=== PATIENT | male | born 1965 | race Caucasian/White ===

== ENCOUNTER 2016-11-12 18:14 | Emergency (ER) | payer MEDICAID ==
--- NOTE | 2016-11-12 19:16 | CPEKG ---
Heart Rate: 69 RR Interval: 870 P-R Interval: 144 QRSD Interval: 86 QT Interval: 364 QTC Interval: 390 P [place]: 53 QRS [place]: -27 T Wave [place]: 98 EKG Severity - ABNORMAL ECG - EKG Impression: SINUS RHYTHM EKG Impression: BORDERLINE LEFT AXIS DEVIATION EKG Impression: NONSPECIFIC T ABNORMALITIES, LATERAL LEADS Electronically Signed By: Johann Cabrera 12-Nov-2016 21:49:12
[2016-11-12] MEDS ORDERED: IPRATROPIUM/ALBUTEROL 3 ML DEYVIAL IH ONE (19:23)
--- NOTE | 2016-11-12 19:25 | EDPHY ---
H & P Stated Complaint: Feels SOB since yesterday Time Seen by Provider: 11/12/16 18:54 HPI/ROS: Chief complaint shortness of breath HPI: 51-year-old male presenting with worsening shortness of breath for the last 2 months, particularly worse the last 2 days. Patient states it is worse when lying down. Better when he sits up. Does have a history of a possible pleural effusion 3 years ago when he had a arm infection. Denies any pain. Shortness of breath is nonexertional. Denies any fevers or chills. No cough. No nausea or vomiting. Does smoke cigarettes, does drink alcohol, and does use marijuana. ROS: 10 point Review of Systems is negative except as noted in the HPI. Past medical history: Bipolar disorder, PTSD, group a strep cellulitis Medications: Hydroxyzine, amitriptyline, Abilify, fluoxetine Allergies: No known drug allergies Physical exam: Gen: Awake, Alert, No Distress HEENT: Nose: no rhinorrhea Eyes: PERRLA, EOMI Mouth: Moist mucosa Neck: Supple, no JVD Chest: nontender, mild bibasilar crackles with diminished breath sounds globally and mild diffuse expiratory wheeze Heart: S1, S2 normal, no murmur Abd: Soft, non-tender, no guarding Back: no CVA tenderness, no midline tenderness Ext: no edema, non-tender Skin: no rash Neuro: CN II-XII intact, Sensation grossly intact, Strength 5/5 in bilateral upper and lower extremities - Personal History Current Tetanus Diphtheria and Acellular Pertussis (TDAP): Yes Tetanus Vaccine Date: 2008 - Medical/Surgical History Hx Asthma: No Hx Chronic Respiratory Disease: No Hx Diabetes: No Hx Cardiac Disease: Yes Hx Renal Disease: No Hx Cirrhosis: No Hx Alcoholism: No Hx HIV/AIDS: No Hx Splenectomy or Spleen Trauma: No Other PMH: CHI/TBI, concussions x4 times, pericardial effusion, I&D RUE from strep type A, depression, bipolar, inguinal hernia repair; ACL repair Sep 2016, anxiety - Social History Smoking Status: Current every day smoker Constitutional: Initial Vital Signs Temperature (C) 36.5 C 11/12/16 18:19 Heart Rate 78 11/12/16 18:19 Respiratory Rate 18 11/12/16 18:19 Blood Pressure 122/78 H 11/12/16 18:19 O2 Sat (%) 95 11/12/16 18:19 O2 Delivery Mode Room Air Allergies/Adverse Reactions: No Known Allergies Allergy (Verified 11/12/16 18:15) Home Medications: Medication Instructions Recorded ARIPiprazole [Abilify 10 mg (*)] 10 mg PO DAILY 11/12/16 Amitriptyline HCl [Elavil 10 mg 10 mg PO TID 11/12/16 (*)] FLUoxetine [PROzac] 10 mg PO 11/12/16 hydrOXYzine HCL [hydrOXYzine HCL 25 mg PO 11/12/16 (RX)] Medical Decision Making - Diagnostics Imaging: Chest x-ray: Interpreted by radiologist, peribronchial thickening consistent with bronchitis or airways disease. ED Course/Re-evaluation: Patient feels significantly improved after a DuoNeb. Chest x-ray is consistent with reactive airway disease. Repeat evaluation shows improvement of his wheezing and lung exam. He has clear lung burnett bilaterally. Will discharge with an albuterol MDI and spacer. He has appointment with his doctor this week. She will probably be arranging for a formal pulmonary function testing. - Data Points Medications Given: Discontinued Medications Albuterol/Ipratropium (Duoneb) 3 ml IH EDNOW ONE Stop: 11/12/16 19:24 Last Admin: 11/12/16 19:42 Dose: 3 ml Departure - Departure Disposition: Home, Routine, Self-Care Clinical Impression: Acute bronchitis Condition: Good Instructions: Bronchospasm (ED), Wheezing (ED), Acute Bronchitis (ED) Additional Instructions: You may use the inhaler 2 puffs every 4 hours as needed for wheeze or shortness of breath. Follow up with her primary care doctor as scheduled this week for re- evaluation. She may choose to order pulmonary function test. Referrals: Rika Corado [Primary Care Provider] - As per Instructions
[2016-11-12] MEDS ORDERED: ALBUTEROL INH PREPACK MDI TAKEHOME ONE (20:51)
[2016-11-12 20:58] VITALS: BP 118/78; PULSE 70; RESP 14; TEMP 98.4; O2SAT 94
== END 2016-11-12 20:57 | disposition home or self-care (01) ==
DX: J20.9 Acute bronchitis, unspecified (principal); F17.200 Nicotine dependence, unspecified, uncomplicated

== ENCOUNTER → 2017-08-19 | Outpatient (CLI) | payer MEDICAID | LOC: FCPNEURO 23:20 | PROVIDERS: ATTEND Student in an Organized Health Care Education/Training Program | DX: G47.31 Primary central sleep apnea (principal); G47.33 Obstructive sleep apnea (adult) (pediatric) ==

== ENCOUNTER 2018-09-23 21:16 | Emergency (ER) | payer MEDICAID ==
--- NOTE | 2018-09-23 21:28 | EDPHY ---
H & P Time Seen by Provider: 09/23/18 21:17 - Personal History Tetanus Vaccine Date: 2008 - Medical/Surgical History Hx Asthma: No Hx Chronic Respiratory Disease: No Hx Diabetes: No Hx Cardiac Disease: Yes Hx Renal Disease: No Hx Cirrhosis: No Hx Alcoholism: No Hx HIV/AIDS: No Hx Splenectomy or Spleen Trauma: No Other PMH: CHI/TBI, concussions x4 times, pericardial effusion, I&D RUE from strep type A, depression, bipolar, inguinal hernia repair; ACL repair Sep 2016, anxiety - Social History Smoking Status: Current every day smoker Constitutional: Initial Vital Signs Temperature (C) 36.7 C 09/23/18 21:24 Heart Rate 75 09/23/18 21:24 Respiratory Rate 20 09/23/18 21:24 Blood Pressure 158/105 H 09/23/18 21:24 O2 Sat (%) 94 09/23/18 21:24 O2 Delivery Mode Room Air Allergies/Adverse Reactions: No Known Allergies Allergy (Verified 09/23/18 21:24) Home Medications: Medication Instructions Recorded ARIPiprazole [Abilify 10 mg (*)] 10 mg PO DAILY 11/12/16 Amitriptyline HCl [Elavil 10 mg 10 mg PO TID 11/12/16 (*)] FLUoxetine [PROzac] 10 mg PO 11/12/16 hydrOXYzine HCL [hydrOXYzine HCL 25 mg PO 11/12/16 (RX)] Medical Decision Making ED Course/Re-evaluation: CHIEF COMPLAINT: Heroin overdose HISTORY OF PRESENT ILLNESS: The patient is a 53 y/o male arriving via EMS from home after a heroin overdose. His roommate contacted EMS and reported the patient has been using methamphetamine throughout the day and then took a large dose of heroin. He apparently used heroin about 5 minutes prior to arrival per the roommate. EMS found him unconscious with respiratory depression, but not apneic, and pinpoint pupils and administered 2mg Narcan. He quickly regained consciousness and normal respiratory function and has been alert and oriented since then. He currently denies any complaints. He denies any other ingestions or drug use. No recent illness or trauma. REVIEW OF SYSTEMS: A comprehensive 10 system review of systems is otherwise negative aside from elements mentioned in the history of present illness and medical decision making. PHYSICAL EXAM: HR, BP, O2 Sat, RR. Temp noted General Appearance: Alert, well hydrated, appropriate, and non-toxic appearing. Head: Atraumatic without scalp tenderness or obvious injury Eyes: Pupils equal, round, reactive to light and accommodation, EOMI, no trauma , no injection. Nose: Atraumatic, no rhinorrhea, clear. Throat: Mucus membranes moist. Neck: Supple, non-tender, no lymphadenopathy. Respiratory: No retractions, no distress, no wheezes, and no accessory muscle use. Lungs are clear to auscultation bilaterally. Cardiovascular: Regular rate and rhythm, no murmurs, rubs, or gallops. Good capillary refill all extremities. Gastrointestinal: Abdomen is soft, non-tender, non-distended, no masses, no rebound, no guarding, no peritoneal signs. Musculoskeletal: Normal active ROM of all extremities, atraumatic. Neurological: Alert, appropriate, and interactive. The patient has non-focal cranial nerves, motor, sensory, and cerebellar exam. Skin: No rashes, good turgor, no nodules on palpation. PAST MEDICAL HISTORY: Substance abuse, sleep apnea - CPAP PAST SURGICAL HISTORY: Noncontributory SOCIAL HISTORY: Lives in [place]. Meth and heroin abuse. DIFFERENTIAL DIAGNOSIS: The differential diagnosis for the patient's symptoms included but was not limited to narcotic overdose, other intoxicants, infectious process, electrolyte abnormality, head injury, neurologic process, anemia, cardiac process, pneumonia, myocardial infarction, acute mountain sickness, high altitude pulmonary edema, congestive heart failure, and pulmonary embolus. MEDICAL DECISION MAKING: This is a 53 y/o male with a history of substance abuse who presents after a period of respiratory depression following a large dose of heroin this evening. He is currently asymptomatic. Exam is unremarkable. He is not hypoxemic and is breathing normally. Plan for observation. While here patient's SpO2 drops to 88-89% while sleeping. When waking him he tells me he feels fine and denies dyspnea. He reports he has sleep apnea and uses a CPAP while at home. While awake and talking to me his SpO2 is 93%. Doubt noncardiogenic pulmonary edema. Will continue to observe. Patient is doing well on reassessment. He is eager to leave and does not want any further work up here. He will be discharged with standard care and follow up instructions. Return precautions discussed. Departure - Departure Disposition: Home, Routine, Self-Care Clinical Impression: Heroin overdose Qualifiers: Encounter type: initial encounter Injury intent: accidental or unintentional Qualified Code(s): T40.1X1A - Poisoning by heroin, accidental (unintentional), initial encounter Condition: Good Instructions: Narcotic Use Disorder (ED) Additional Instructions: Avoid abuse of illicit drugs. Follow up with your primary care provider this week. Return for worsening of condition. Referrals: [facility],. [Clinic] - As per Instructions Report Scribed for: Matthew Colon Report Scribed by: Beckie Nieto Date of Report: 09/23/18 Time of Report: 21:34
[2018-09-23 22:14] VITALS: BP 126/95
== END 2018-09-23 22:35 | disposition home or self-care (01) ==
LOC: EDUNIT#
DX: T40.1X1A Poisoning by heroin, accidental (unintentional), initial encounter (principal)

== ENCOUNTER → 2018-10-12 | Outpatient (CLI) | payer MEDICAID | LOC: FCPNEURO 21:00 | PROVIDERS: ATTEND Student in an Organized Health Care Education/Training Program | DX: G47.33 Obstructive sleep apnea (adult) (pediatric) (principal) ==

== ENCOUNTER 2019-01-17 11:19 | Inpatient (IN) | payer MEDICAID ==
[2019-01-17] MEDS ORDERED: BACITRACIN ZINC 0.5 OZ OINTTUBE TP ONE (11:25)
[2019-01-17] MEDS ORDERED: LIDO/EPI 1% **Not for Epidural 20 ML MDV ONE (11:25)
[2019-01-17] MEDS ORDERED: OXYMETAZOLINE 30 ML NASAL SPRAY ONE (11:25)
[2019-01-17] MEDS ORDERED: LR 1,000 ML IV ONE (11:42)
[2019-01-17] MEDS ORDERED: PROPOFOL/EMULSION 500 MG/50 ML BOTTLE IV ONE (12:19)
[2019-01-17] MEDS ORDERED: fentaNYL 100 MCG/2 ML INJ ONE ×2 (12:20→15:00)
--- NOTE | 2019-01-17 12:21 | PDGENHP ---
History & Physical Chief Complaint: nasal obstruction History of Present Illness: Septal deviation, turbinate hypertrophy Pertinent Past, Social, Family History: Smoker Relevant Physical Exam: Nasal obstruction. A&O, NAD Cardiorespiratory Assessment: Good candidate for steptoplasty, turbinate reduction
[2019-01-17] MEDS ORDERED: MIDAZOLAM 2 MG/2 ML VIAL ONE (12:23)
[2019-01-17] MEDS ORDERED: OXYMETAZOLINE 30 ML NASAL SPRAY EACHNARE ONE (12:23)
[2019-01-17] MEDS ORDERED: LABETALOL HCL 5 MG/ML 20 ML MDV ONE ×2 (12:47→14:52)
[2019-01-17] MEDS ORDERED: MIDAZOLAM 2 MG/2 ML VIAL IVP ONE (13:01)
[2019-01-17] MEDS ORDERED: LR 500 ML IV PRN (13:02)
[2019-01-17] MEDS ORDERED: ALBUTEROL 3 ML DEYVIAL IH PRN ×2 (13:02→16:19)
[2019-01-17] MEDS ORDERED: DEXAMETHASONE 4 MG/ML VIAL IVP PRN (13:02)
[2019-01-17] MEDS ORDERED: oxyCODONE IR 5 MG TAB PO PRN (13:02)
[2019-01-17] MEDS ORDERED: ONDANSETRON 4 MG/2 ML VIAL IVP PRN ×2 (13:02→16:19)
[2019-01-17] MEDS ORDERED: ACETAMINOPHEN 500 MG TAB PO PRN (13:02)
[2019-01-17] MEDS ORDERED: NALOXONE HCL 0.4 MG/ML INJ IVP PRN (13:02)
--- NOTE | 2019-01-17 13:08 | PDANEPAE ---
ANE History of Present Illness 53 year old male for septoplasty to treat nasal obstruction. He has sleep apnea but is unable to use his CPAP secondary to nasal obstruction. He also has a history of CAD with stents placed in 2011. He smokes cigs and today on admission his O2 sat was 83 on RA. He says he has an inhaler but doesn't use it. He denies any recent infections, cough, or fever. He states that he feels like he is currently at his baseline. He does not use oxygen. He is followed by Dr. Rika Corado at the [facility]. ANE Past Medical History - Cardiovascular History Hx Hypertension: No Hx Arrhythmias: No Hx Chest Pain: No Hx Coronary Artery / Peripheral Vascular Disease: Yes Hx CHF / Valvular Disease: No Hx Palpitations: No Cardiovascular History Comment: R HEART CATH 2011. PERICARDIOCENTESIS 2011 - Pulmonary History Hx COPD: Yes Hx Asthma/Reactive Airway Disease: Yes Hx Recent Upper Respiratory Infection: No Hx Oxygen in Use at Home: No Hx Sleep Apnea: Yes Sleep Apnea Screening Result - Last Documented: Positive - Neurologic History Hx Cerebrovascular Accident: No Hx Seizures: No Hx Dementia: No Neurologic History Comment: MIGRAINES. CONCUSSIONS - Endocrine History Hx Diabetes: No - Renal History Hx Renal Disorders: No - Liver History Hx Hepatic Disorders: No - Neurological & Psychiatric Hx Hx Neurological and Psychiatric Disorders: Yes Neurological / Psychiatric History Comment: DEPRESSION - Cancer History Hx Cancer: No - Congenital Disorder History Hx Congenital Disorders: No - GI History Hx Gastrointestinal Disorders: No - Other Health History Other Health History: NEG - Chronic Pain History Chronic Pain: No - Surgical History Prior Surgeries: R ELBOW I & D. R HEART CATH 2011. PERICARDIOCENTESIS 2011 ANE Review of Systems Review of systems is: negative Review of Systems: - Exercise capacity METS (RN): 5 METS ANE Patient History - Allergies Allergies/Adverse Reactions: No Known Allergies Allergy (Verified 09/23/18 21:24) - Home Medications Home Medications: ARIPiprazole [Abilify 10 mg (*)] 10 mg PO DAILY 11/12/16 [Last Taken 01/17/19 05 :00] Amitriptyline HCl [Elavil 10 mg (*)] 10 mg PO TID 11/12/16 [Last Taken 01/16/19 20:00] FLUoxetine [PROzac] 10 mg PO 11/12/16 [Last Taken 01/16/19 20:00] - NPO status NPO Since - Liquids (Date): 01/17/19 NPO Since - Liquids (Time): 04:00 NPO Since - Solids (Date): 01/16/19 NPO Since - Solids (Time): 21:00 - Smoking Hx Smoking Status: Current every day smoker - Family Anes Hx Family Hx Anesthesia Complications: NEG ANE Labs/Vital Signs - Vital Signs Blood Pressure: 108/75 Heart Rate: 87 Respiratory Rate: 15 O2 Sat (%): 83 Height: 172.72 cm Weight: 72.575 kg ANE Physical Exam - Airway Neck exam: FROM Mallampati Score: Class 2 Mouth exam: poor dentition - Pulmonary Pulmonary: inspiratory crackles - Cardiovascular Cardiovascular: regular rate and rhythym - ASA Status ASA Status: III
[2019-01-17] MEDS ORDERED: ALBUTEROL 3 ML DEYVIAL ONE (14:37)
--- NOTE | 2019-01-17 14:42 | POSTOPPROG ---
Post Op Note Date of Operation: 01/17/19 Surgeon: Jagdish Valladares Anesthesiologist: Alyssa Anesthesia: GET(General Endotracheal) Pre-op Diagnosis: Nasal valve stenosis, nasal septal deviation Post-op Diagnosis: Nasal valve stenosis, nasal septal deviation Indication: Nasal valve stenosis, nasal septal deviation Procedure: Endoscopic septoplasty, nasal valve stenosis repair Findings: Nasal valve stenosis, nasal septal deviation Inf/Abcess present in the surg proc area at time of surgery?: No Depth: Deep Incisional (Fascial) EBL: Minimal Complications: none Bowel Protocol: No Clean Closure Performed: Yes Specimen(s): none
[2019-01-17] MEDS: LABETALOL HCL 5 MG/ML 20 ML MDV IVP PRN ×3 (14:53→16:01)
[2019-01-17] MEDS: fentaNYL 100 MCG/2 ML INJ IVP PRN ×2 (15:05→15:14)
--- NOTE | 2019-01-17 15:05 | POSTANESTH ---
Post Anesthetic Evaluation Cardiovascular Status: Normal, Stable Respiratory Status: Similar to Pre-op Cond. Level of Consciousness/Mental Status: Mildly Sleepy, Arousable Pain Control: Adequate, Prn Tx Ordered Nausea/Vomiting Control: Adequate, Prn Tx Ordered Complications Possibly Related to Anesthesia: None Noted (Patient had O2 sat of 83 on admission. Plan for admission and consult with hospitalist.)
[2019-01-17] MEDS ORDERED: HYDROCODONE/APAP 5/325 TAB ONE (15:48)
[2019-01-17] MEDS: HYDROCODONE/APAP 5/325 TAB PO PRN ×2 (15:49→20:12)
[2019-01-17] MEDS ORDERED: HYDROmorphONE/DILAUDID 1 MG/ML INJ IVP PRN (16:19)
[2019-01-17] MEDS ORDERED: ONDANSETRON DISINTEGRATING 4 MG TAB PO PRN (16:19)
[2019-01-17] MEDS ORDERED: PROMETHAZINE HCL 25 MG/ML INJ IVP PRN (16:19)
[2019-01-17] MEDS ORDERED: ACETAMINOPHEN 325 MG TAB PO PRN (16:19)
[2019-01-17 18:36] LABS: PLATELET COUNT 215 10^3/uL (150-400)
--- NOTE | 2019-01-17 19:23 | PDGENHP ---
History and Physical - Chief Complaint hypoxia - History of Present Illness 53 yo M with PMH of chronic tobacco use, prior episode of cardiac tamponade from hemorrhagic pericardial effusion of unclear etiology presenting for septoplasty for septal deviation repair and noted to be hypoxic both pre and post operatively. Patient was found to be saturating in the low 80s in pre-op and again in post-op and due to that, was recommended he be kept in hospital overnight for further evaluation and perhaps to be set up for home o2 if needed. Patient notes that he was feeling a bit sob recently, for the last couple of months he has noticed that he is short of breath when he is biking-- it sounds as if he uses his bike to get around for the most part. Yesterday in particularly after cycling a normal distance he was short of breath and had trouble catching his breath for an extended amount of time. He has not had fever or chills, he denies chest pain, he has not had leg swelling or pain. He has been cutting down on his tobacco use--previously at least 1 or more packs per day, but more recently has cut down to 1/3-1/2 pack per day. History Information - Allergies/Home Medication List Allergies/Adverse Reactions: No Known Allergies Allergy (Verified 09/23/18 21:24) Home Medications: Amitriptyline HCl [Elavil 10 mg (*)] 50 mg PO HS 11/12/16 [Last Taken 01/16/19 20:00] ARIPiprazole [Abilify] 30 mg PO DAILY 01/17/19 [Last Taken 01/17/19] Gabapentin [Neurontin 300 MG (*)] 600 mg PO HS 01/17/19 [Last Taken 01/16/19] I have personally reviewed and updated: family history, medical history, social history, surgical history - Past Medical History CVA (prior hemorrhagic stroke), GERD, migraines, psychiatric history ( depression with psychotic features, bipolar) Additional medical history: 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 post concussive syndrome. KELSEY--on cpap. hx of cardiac tamponade/ hemorrhagic pericardial effusion. hx of cellulitis/olecranon bursitis - Surgical History Reports: appendectomy, hernia repair Additional surgical history: L arm ORIF - Family History Additional family history: sister w/MS - Social History Smoking Status: Current every day smoker Alcohol Use: Other (previously heavy) Drug Use: None Additional social history: patient works as a [employer], has been intermittently homeless Review of Systems Review of Systems: ROS: 10pt was reviewed & negative except for what was stated in HPI & below Physical Exam Physical Exam: Temp Pulse Resp BP Pulse Ox 36.5 C 74 16 125/76 H 94 01/17/19 18:59 01/17/19 18:59 01/17/19 18:59 01/17/19 18:59 01/17/19 18:59 O2 (L/minute) 3 Constitutional: no apparent distress, appears nourished, unkempt Eyes: PERRL, anicteric sclera Ears, Nose, Mouth, Throat: moist mucous membranes, poor dentition Cardiovascular: regular rate and rhythym, no murmur, rub, or gallop, No edema Respiratory: no respiratory distress, reduced air movement Gastrointestinal: normoactive bowel sounds, soft, non-tender abdomen Genitourinary: no bladder tenderness Skin: warm, normal color Musculoskeletal: no muscle tenderness, No asymmetric calves Neurologic: AAOx3 Psychiatric: interacting appropriately, not anxious, not encephalopathic Lab Data & Imaging Review 01/17/19 18:15 01/17/19 18:15 WBC 12.03 10^3/uL (3.80-9.50) H 01/17/19 18:15 RBC 5.44 10^6/uL (4.40-6.38) 01/17/19 18:15 Hgb 18.6 g/dL (13.7-17.5) H 01/17/19 18:15 Hct 55.6 % (40.0-51.0) H 01/17/19 18:15 MCV 102.2 fL (81.5-99.8) H 01/17/19 18:15 MCH 34.2 pg (27.9-34.1) H 01/17/19 18:15 MCHC 33.5 g/dL (32.4-36.7) 01/17/19 18:15 RDW 13.3 % (11.5-15.2) 01/17/19 18:15 Plt Count 215 10^3/uL (150-400) 01/17/19 18:15 MPV 11.8 fL (8.7-11.7) H 01/17/19 18:15 Neut % (Auto) 89.5 % (39.3-74.2) H 01/17/19 18:15 Lymph % (Auto) 8.3 % (15.0-45.0) L 01/17/19 18:15 Duval % (Auto) 1.3 % (4.5-13.0) L 01/17/19 18:15 Eos % (Auto) 0.0 % (0.6-7.6) L 01/17/19 18:15 Baso % (Auto) 0.3 % (0.3-1.7) 01/17/19 18:15 Nucleat RBC Rel Count 0.0 % (0.0-0.2) 01/17/19 18:15 Absolute Neuts (auto) 10.76 10^3/uL (1.70-6.50) H 01/17/19 18:15 Absolute Lymphs (auto) 1.00 10^3/uL (1.00-3.00) 01/17/19 18:15 Absolute Monos (auto) 0.16 10^3/uL (0.30-0.80) L 01/17/19 18:15 Absolute Eos (auto) 0.00 10^3/uL (0.03-0.40) L 01/17/19 18:15 Absolute Basos (auto) 0.04 10^3/uL (0.02-0.10) 01/17/19 18:15 Absolute Nucleated RBC 0.00 10^3/uL (0-0.01) 01/17/19 18:15 Immature Gran % 0.6 % (0.0-1.1) 01/17/19 18:15 Immature Gran # 0.07 10^3/uL (0.00-0.10) 01/17/19 18:15 Sodium 136 mEq/L (135-145) 01/17/19 18:15 Potassium 5.0 mEq/L (3.5-5.2) 01/17/19 18:15 Chloride 104 mEq/L (97-110) 01/17/19 18:15 Carbon Dioxide 23 mEq/l (22-31) 01/17/19 18:15 Anion Gap 9 mEq/L (6-14) 01/17/19 18:15 BUN 11 mg/dL (7-23) 01/17/19 18:15 Creatinine 1.2 mg/dL (0.7-1.3) 01/17/19 18:15 Estimated GFR > 60 01/17/19 18:15 Glucose 169 mg/dL (70-100) H 01/17/19 18:15 Calcium 9.1 mg/dL (8.5-10.4) 01/17/19 18:15 Total Bilirubin 0.9 mg/dL (0.1-1.4) 01/17/19 18:15 AST 24 IU/L (17-59) 01/17/19 18:15 ALT 36 IU/L (21-72) 01/17/19 18:15 Alkaline Phosphatase 102 IU/L (38-126) 01/17/19 18:15 NT-Pro-B Natriuret Pep 465 pg/mL (0-125) H 01/17/19 18:15 Total Protein 6.6 g/dL (6.3-8.2) 01/17/19 18:15 Albumin 4.1 g/dL (3.5-5.0) 01/17/19 18:15 Visualized and Interpreted Chest x-ray results: Yes Chest X-Ray results: infiltrate (inferior rul) Visualized and Interpreted EKG results: Yes EKG Interpretation: Positive for: normal sinsus rhythm EKG additional interpertation: Lad, repol abnormality Assessment & Plan Assessment: 53 yo M with PMH of chronic longstanding tobacco use, hx of pericardial effusion and tamponade now s/p septoplasty for septal deviation and found to be hypoxic both pre and post op with concern for pna on cxr # hypoxia: suspect that this is at least somewhat chronic given relatively mild to no symptoms with o2 sats of 83%, he does have an infiltrate present on cxr however and query component of pna making him more hypoxic. Underlying COPD likely and patient would benefit from pulmonary function testing, though this likely should be done down the road as could be affected by his recent surgery. May need to dc on supplemental o2. # pna: RUL infiltrate noted on cxr new from prior, pna versus atelectasis. He is relatively asymptomatic as above, he has been started on augmentin for post operative treatment and this is likely adequate coverage for presumed pna as well. Consider CT in the am if patient failing to improve overnight # hx of CVA/multiple concussions and post concussion syndrome with residual memory loss and personality change--previously followed by neurology # leukocytosis: mildly increased without other sirs criteria currently, will trend # polycythemia: could be chronic due to chronic tobacco use, will give IVF overnight and recheck in am # hx of pericardial effusion: hospitalized for this in 2011, etiology never quite clear but other findings that were concerning for chronic inflammatory process as well # s/p septoplasty: augmentin 875 BID x 1 week, pain meds as needed, has nasal packing in place and f/u with ENT-- will need to determine exactly when f/u appointment should be scheduled # observation status # Patient new to my care. Old records reviewed and summarized as above. Care plan reviewed with Dr. Valladares as above.
[2019-01-17] MEDS: AMOXICILLIN/CLAVULANATE POT 875/125 MG TAB PO SCH (20:07)
[2019-01-17] MEDS: IPRATROPIUM/ALBUTEROL 3 ML DEYVIAL IH SCH (21:25)
[2019-01-18] MEDS: HYDROCODONE/APAP 5/325 TAB PO PRN ×2 (01:47→07:29)
[2019-01-18 05:12] LABS: PLATELET COUNT 211 10^3/uL (150-400)
[2019-01-18] MEDS: IPRATROPIUM/ALBUTEROL 3 ML DEYVIAL IH SCH ×4 (05:20→20:47)
[2019-01-18] MEDS: AMOXICILLIN/CLAVULANATE POT 875/125 MG TAB PO SCH (08:24)
--- NOTE | 2019-01-18 11:43 | HOSPPROG ---
Hospitalist Progress Note Assessment/Plan: 53 yo M with PMH of chronic longstanding tobacco use, hx of pericardial effusion and tamponade now s/p septoplasty for septal deviation and found to be hypoxic both pre and post op with concern for pna on cxr. First encounter, chart reviewed. *hypoxia -multifactorial, has nasal packing in place, element of COPD, chest x ray concerning for pna *PNA -RUL infiltrate noted -Augmentin -concerned he may of aspirated - will place on Unasyn, check blood cx *leukocytosis -wbc increased overnight -check a procalcitonin *polycythemia -from COPD, tobacco use, suspect he is chronically hypoxic *hx of pericardial effusion -occurred in 2011, no clear cut etiology was found *s/p septoplasty -Augmentin x 1 week *alcohol use -patient says he drinks a beer nightly but is tremulous during my interview and is withdrawing -CIWA protocol, thiamine -ordered a beer w lunch and dinner *nicotine dependence -will order a patch *plan: very concerned he has an aspiration pna and needs more treatment, he is willing to stay, will give him a dose of oral Librium now. He will require another midnight stay for further evaluation. Will place on IV abx, treat w CIWA. Check a cbc in the morning. Subjective: Matthew is willing to stay. Has no specific complaints. Objective: Vital Signs Temp Pulse Resp BP Pulse Ox 36.7 C 72 18 125/84 H 92 01/18/19 11:21 01/18/19 11:21 01/18/19 11:21 01/18/19 11:21 01/18/19 11:25 Laboratory Results 01/18/19 04:28 01/17/19 18:15 01/17/19 01/18/19 01/19/19 05:59 05:59 05:59 Intake Total 1200 Output Total 20 Balance 1180 - Physical Exam Constitutional: chronically ill appearing Eyes: PERRL Ears, Nose, Mouth, Throat: hearing normal, other (nasal packing in nares) Cardiovascular: regular rate and rhythym, tachycardia Respiratory: no respiratory distress, reduced air movement Skin: warm, other (face flushed) Neurologic: AAOx3 Psychiatric: interacting appropriately, anxious, other (tremulous) ICD10 Worksheet Patient Problems: Problems Problem Status Onset Cellulitis of arm Active Pericardial effusion Active
[2019-01-18] MEDS ORDERED: NICOTINE 21 MG/24 HR PATCH TD PRN (11:55)
[2019-01-18] MEDS ORDERED: FLUMAZENIL 0.5 MG/5 ML MDV IVP PRN (11:55)
[2019-01-18] MEDS: AMPICILLIN/SULBACTAM 3 GM in NS 100 ML IV SCH ×3 (12:38→23:18)
[2019-01-18] MEDS: FOLIC ACID 1 MG TAB PO SCH (13:15)
[2019-01-18] MEDS: THIAMINE HCL 500 MG in NS 100 ML IV SCH (13:15)
[2019-01-18] MEDS: MULTIVITAMINS 1 EACH TAB PO SCH (13:15)
[2019-01-18] MEDS: BEER 1 EACH EA PO SCH ×2 (13:28→17:39)
--- NOTE | 2019-01-18 15:16 | ASMTCMCOM ---
CM Note CM Note Notes: Pt is s/p septoplasty and kept overnight for hypoxia. He is also on CIWA for etoh use. He has been intermittently homeless but currently living in a [facility]. Anticipate he will d/c home independent when medically cleared. CM will continue to follow for any change in d/c needs. D/C plan: anticipate home independent Date Signed: 01/18/2019 03:15 PM Electronically Signed By:BO Valentine
[2019-01-18] MEDS: LORazepam 1 MG TAB PO PRN ×2 (15:48→20:33)
[2019-01-18] MEDS: oxyCODONE IR 5 MG TAB PO PRN ×2 (15:48→20:34)
[2019-01-18] MEDS: GABAPENTIN 300 MG CAP PO SCH (20:33)
[2019-01-18] MEDS: AMITRIPTYLINE HCL 50 MG TAB PO SCH (20:35)
[2019-01-19 05:00] LABS: PLATELET COUNT 171 10^3/uL (150-400)
[2019-01-19] MEDS: AMPICILLIN/SULBACTAM 3 GM in NS 100 ML IV SCH ×4 (05:01→23:50)
[2019-01-19] MEDS: oxyCODONE IR 5 MG TAB PO PRN (05:13)
[2019-01-19] MEDS: IPRATROPIUM/ALBUTEROL 3 ML DEYVIAL IH SCH ×4 (05:15→21:45)
[2019-01-19] MEDS: THIAMINE HCL 500 MG in NS 100 ML IV SCH (08:21)
[2019-01-19] MEDS: FOLIC ACID 1 MG TAB PO SCH (08:25)
[2019-01-19] MEDS: ARIPiprazole 10 MG TAB PO SCH (08:25)
[2019-01-19] MEDS: MULTIVITAMINS 1 EACH TAB PO SCH (08:25)
--- NOTE | 2019-01-19 09:52 | PDMN ---
Medical Necessity Medical necessity: Pt changed to IP as of 01/18/2019 per and MCG [id number] ( Pneumonia due to aspiration); los > 2 mn for ongoing tx and management of aspiration pneumonia with hypoxia, has nasal packing in place s/p septoplasty, also requiring CIWA protocol
--- NOTE | 2019-01-19 10:48 | HOSPPROG ---
Hospitalist Progress Note Assessment/Plan: 53 yo M with PMH of chronic longstanding tobacco use, hx of pericardial effusion and tamponade now s/p septoplasty for septal deviation and found to be hypoxic both pre and post op with concern for pna on cxr. *hypoxia -multifactorial, has nasal packing in place, element of COPD, chest x ray concerning for pna *PNA -RUL infiltrate noted -Augmentin -treated w Unasyn -blood cx pending *leukocytosis -improved -procalcitonin is low *polycythemia -from COPD, tobacco use, suspect he is chronically hypoxic *hx of pericardial effusion -occurred in 2011, no clear cut etiology was found *s/p septoplasty -Augmentin x 1 week *alcohol use -patient says he drinks a beer nightly -CIWA protocol, thiamine -ordered a beer w lunch and dinner *nicotine dependence -will order a patch *plan: Matthew feels much better, wants to go home. Will get home based assistant to check on him. Says he has a woman who checks on him in addition Subjective: Matthew is tired but wants to go home Objective: Vital Signs Temp Pulse Resp BP Pulse Ox 36.4 C 72 18 134/95 H 96 01/19/19 08:00 01/19/19 10:30 01/19/19 10:30 01/19/19 08:00 01/19/19 10:30 Laboratory Results 01/19/19 06:56 01/19/19 04:11 01/18/19 01/19/19 01/20/19 05:59 05:59 05:59 Intake Total 1200 1500 Output Total 20 Balance 1180 1500 - Physical Exam Constitutional: chronically ill appearing Eyes: PERRL Ears, Nose, Mouth, Throat: other (small amount of drainage coming from nasal packing) Respiratory: no respiratory distress, other (crackles r base) Skin: warm Neurologic: AAOx3 Psychiatric: interacting appropriately, flat affect, other (bit slow to answer questions) ICD10 Worksheet Patient Problems: Problems Problem Status Onset Cellulitis of arm Active Pericardial effusion Active
--- NOTE | 2019-01-19 12:11 | PDHOMEO2F ---
Home Oxygen Face to Face Home Orders: I certify that a physician or a nurse practitioner or physician's shop assistant has had a cliy-be-esip encounter with this patient on the date of this order due to the diagnosis listed, which relates to the primary reason the patient requires home oxygen. Alternative treatments have been tried, or considered, and deemed ineffective. It is anticipated that supplemental oxygen will result in improvement with treatment. Home oxygen qualifying diagnosis: copd SpO2 on room air (%): 82 Frequency of home oxygen needed: continuous Home oxygen liters per minute: 2 Home oxygen delivery device: mask, nasal cannula Concentrator: Yes (patient has nasal packing from surgery, would benefit temporary use of mask) E-tanks for mobility and back up: Yes If ordering portable O2, is the patient mobile in the home?: Yes I certify that, based on these findings, the home oxygen is medically necessary for this patient for the following length of time. Length of time home oxygen needed: 99 years
--- NOTE | 2019-01-19 12:12 | PDIAF ---
- Diagnosis Diagnosis: s/p septoplasty, copd Code Status: Full Code - Medication Management Discharge Medications: electronically signed and located in the Home Medication List. PICC Care - Routine: N/A - Orders Services needed: Home Care, Registered Nurse Home Care Face to Face: I certify that this patient was under my care and that I had the required [id number] encounter meeting the encounter requirements on the discharge day. My findings support the fact that the patient is homebound as defined in Home Care Face to Face Continued: CMS Chapter 7 Medicare Benefits Manual 30.1.1 , The condition of the patient is such that there exists a normal inability to leave home and consequently, leaving home would require a considerable and taxing effort. Diet Recommendation: no restrictions on diet Diet Texture: Regular Texture Diet Additional Instructions: Follow up with Dr Jagdish Valladares this week, call his office this Sunday no smoking around the oxygen, will cause a fire take the Augmentin as instructed, but can take it for 5 days instead of [address] clean dressings underneath your nose area no nose blowing, do not bend your head down below the waist blood cultures are pending, have your doctor f/u with this - Follow Up Care Current Providers and Referrals: Rika Corado [Primary Care Provider] - Jagdish Valladares MD [Medical Doctor] -
--- NOTE | 2019-01-19 12:24 | ASMTLACE ---
DORAIN Length of stay for Answers: 2 days current admission Acuity / Level of Answers: Yes Care: Did the patient have an inpatient admission? Comorbidities - select Answers: Cerebrovascular disease all that apply (CVA, TIA, aneurysms, vasc ular dementia) Other Notes: GERD, migraines, TBI, O SA # of Emergency department Answers: 0 visits in the last 6 months Social determinants Answers: Mental health diagnosis (anxiety, depression, pers onality disorders, etc.) Score: 10 Date Signed: 01/19/2019 12:23 PM Electronically Signed By:Preeti Fitch RN
--- NOTE | 2019-01-19 14:19 | ASMTCMCOM ---
CM Note CM Note Notes: D/w MEDICAL AUDITOR and met with pt, will go home with O2 and home health RN. CM spoke with [facility] at [facility] and [facility] can accept. Pt still oozing blood from nose, will dc tomorrow when medically stable. DC Plan: Homecare/ [facility] (RN) Date Signed: 01/19/2019 02:18 PM Electronically Signed By:Preeti Fitch RN
[2019-01-19] MEDS: HYDROCODONE/APAP 5/325 TAB PO PRN (16:18)
[2019-01-19] MEDS: OXYMETAZOLINE 30 ML NASAL SPRAY EACHNARE SCH ×2 (16:21→20:39)
[2019-01-19] MEDS: BEER 1 EACH EA PO SCH ×2 (16:36→17:35)
[2019-01-19 17:35] LABS: PLATELET COUNT 157 10^3/uL (150-400)
[2019-01-19 17:45] LABS: INR 1.05 (0.83-1.16); PROTIME(PATIENT) 13.3 SEC (12.0-15.0)
[2019-01-19] MEDS: AMITRIPTYLINE HCL 50 MG TAB PO SCH (20:39)
[2019-01-19] MEDS: GABAPENTIN 300 MG CAP PO SCH (20:39)
--- NOTE | 2019-01-19 23:05 | GCON ---
[f rep st] CONSULTATION ENT CONSULTATION DATE OF CONSULTATION: 01/19/2019 REQUESTING PHYSICIAN: [facility]. REASON FOR CONSULTATION: Postoperative nasal hemorrhage. HISTORY: The patient is a 53-year-old man who underwent a nasal septoplasty and turbinate surgery on 01/17/2019. Postoperatively, he had evidence of pneumonia and has been in the hospital [facility] that time. I was contacted this afternoon because the patient has been having intermittent bleedin g over the last 2 days, which has accelerated significantly today. We tried and failed topical Afrin spray. The patient is complaining of blood clots hanging in his throat and making him feel like he was going to choke. Given his history of recent pneumonia, I felt it important to improve the hemost asis as much as possible. PHYSICAL EXAM: The patient was awake, alert, oriented x3, complaining of some pain in the upper teet h and nasal area typical for postoperative day 2. He had a lot of clot and some active bleeding from the right nostril. Oral cavity exam showed some blood clot hanging against the posterior pharyngeal wall. Using a headlight for visualization, the nose was cleaned of blood clot. He had bilateral silicone D oyle II splints in the septum. There was just a tiny bit of bleeding from the left side, but active bleeding from the right. I sprayed the nose with Afrin and slipped a thin pledget soaked in lidocain e and phenylephrine medial and lateral to the silastic splints. These were removed and fresh ones we re placed repeatedly and I was able to advance back and suction a lot of clot that was along the sept um between this splint and the septum itself. It then became apparent that the bleeding was going to continue. I, at this point, made the decision to remove the silicone splints to obtain better hemos tasis. At this point, I performed endoscopic control for epistaxis. The suture holding the Guerrier II splint was divided and I removed the silicone splints from both sides of the nose. I then suctioned a large quantity of clot from the right side of the nose extending all the way back into the nasopharynx. I then had the patient gently breathe inward and the clot fell into the throat and he swallowed it. I then sprayed the nose with lidocaine and phenylephrine, and examined endoscopically. It became appa rent that the bleeding on the right side was coming from a mucosal tear extending from the floor and then up in the midportion of the septum about 3 cm back. I packed cotton and phenylephrine and lidoc allie against this for about 10 minutes and then removed it. The oozing was persistent. I did not wa nt to perform any cautery on these mucosal edges as that would increase the potential risk of septal perforation. I soaked a 5.5 cm Rapid Rhino pack in sterile water until it was fully saturated. The Rapid Rhino pa ck was then passed along the floor of the nose on the right side putting direct pressure against the bleeding laceration on the septal mucosa and also put some pressure against the inferior turbinate. I did not place any air in the Rapid Rhino at all as I felt even gentle pressure was all that was nee ded and I did not want to deviate the septum which is in good position at this point in time. I then looked back in the left side of the nose and there was some oozing from the incision site. Af ter packing for a while and removing it, there was still some oozing. I then placed a piece of Surgi pete over it with good hemostasis. IMPRESSION: Postoperative hemorrhage following nasal surgery. The patient has good hemostasis at th is point in time. The Rapid Rhino on the right side is putting just very gentle pressure on the sept um and we obtained excellent hemostasis. On the left side of the nose, if he continues to ooze, a co tton ball soaked in Afrin and squeezed out could easily be placed against this spot because it is kimberly se to the nasal vestibule. Further back in the right side of the nose endoscopically, there were no signs of any bleeding at all and the nasopharynx was clear. I will inform Dr. Valladares tomorrow regard ing the events of the day. Please call me if any further issues come up overnight. /[id number]/MODL
[2019-01-20] MEDS: AMPICILLIN/SULBACTAM 3 GM in NS 100 ML IV SCH ×2 (05:18→11:39)
[2019-01-20] MEDS: IPRATROPIUM/ALBUTEROL 3 ML DEYVIAL IH SCH ×2 (05:41→11:44)
[2019-01-20] MEDS: THIAMINE HCL 500 MG in NS 100 ML IV SCH (08:36)
[2019-01-20] MEDS: MULTIVITAMINS 1 EACH TAB PO SCH (08:36)
[2019-01-20] MEDS: ARIPiprazole 10 MG TAB PO SCH (08:36)
[2019-01-20] MEDS: OXYMETAZOLINE 30 ML NASAL SPRAY EACHNARE SCH (08:36)
[2019-01-20] MEDS: FOLIC ACID 1 MG TAB PO SCH (08:36)
[2019-01-20] MEDS: HYDROCODONE/APAP 5/325 TAB PO PRN (08:42)
[2019-01-20 08:44] VITALS: BP 127/86
--- NOTE | 2019-01-20 11:58 | HOSPPROG ---
Hospitalist Progress Note Assessment/Plan: 53 yo M with PMH of chronic longstanding tobacco use, hx of pericardial effusion and tamponade now s/p septoplasty for septal deviation and found to be hypoxic both pre and post op with concern for pna on cxr. *hypoxia -multifactorial, has nasal packing in place, element of COPD, chest x ray concerning for pna *PNA -RUL infiltrate noted -Augmentin -treated w Unasyn -blood cx pending *leukocytosis -improved -procalcitonin is low *polycythemia -from COPD, tobacco use, suspect he is chronically hypoxic *hx of pericardial effusion -occurred in 2011, no clear cut etiology was found *s/p septoplasty -Augmentin x 1 week total (has been on Unasyn during his stay, only needs 4 more days) *postop hemorrhage after nasal surgery(mucosal tear) -appreciate Dr Lofton seeing Matthew *alcohol use -patient says he drinks a beer nightly -CIWA protocol, thiamine -ordered a beer w lunch and dinner *nicotine dependence -will order a patch *plan: dc home w f/u with Dr Valladares Subjective: Matthew is feeling much better today. Objective: Vital Signs Temp Pulse Resp BP Pulse Ox 36.7 C 76 16 127/86 H 92 01/20/19 08:43 01/20/19 11:44 01/20/19 11:44 01/20/19 08:43 01/20/19 11:44 Laboratory Results 01/19/19 17:30 01/19/19 04:11 01/19/19 01/20/19 01/21/19 05:59 05:59 05:59 Intake Total 1500 450 Balance 1500 450 PT 13.3 SEC (12.0-15.0) 01/19/19 17:30 INR 1.05 (0.83-1.16) 01/19/19 17:30 - Physical Exam Constitutional: no apparent distress, appears nourished, not in pain Ears, Nose, Mouth, Throat: other (nasal packing in right nares) Respiratory: no respiratory distress, no rales or rhonchi Skin: warm Musculoskeletal: full muscle strength Neurologic: AAOx3 Psychiatric: interacting appropriately ICD10 Worksheet Patient Problems: Problems Problem Status Onset Cellulitis of arm Active Pericardial effusion Active
--- NOTE | 2019-01-20 12:20 | PDIAF ---
- Diagnosis Diagnosis: s/p septoplasty, copd Code Status: Full Code - Medication Management Discharge Medications: electronically signed and located in the Home Medication List. PICC Care - Routine: N/A - Orders Services needed: Home Care, Registered Nurse Home Care Face to Face: I certify that this patient was under my care and that I had the required [id number] encounter meeting the encounter requirements on the discharge day. My findings support the fact that the patient is homebound as defined in Home Care Face to Face Continued: CMS Chapter 7 Medicare Benefits Manual 30.1.1 , The condition of the patient is such that there exists a normal inability to leave home and consequently, leaving home would require a considerable and taxing effort. Diet Recommendation: no restrictions on diet Diet Texture: Regular Texture Diet Additional Instructions: Follow up with Dr Jagdish Valladares this week, call his office today no smoking around the oxygen, will cause a fire take the Augmentin as instructed, but can take it for 4 days instead of [address] clean dressings underneath your nose area no nose blowing, do not bend your head down below the waist blood cultures are pending, have your doctor f/u with this -start the Augmentin tonight -do not drink or drive while on the narcotics, (the Vicodin) -avoid amitriptyline when you use the Afrin spray. Do not to use at the same time. The Afrin spray is only temporary we have the packing in her nose. - Follow Up Care Current Providers and Referrals: Rika Corado [Primary Care Provider] - Jagdish Valladares MD [Medical Doctor] -
--- NOTE | 2019-01-20 13:48 | GDS ---
[f rep st] DISCHARGE SUMMARY DISCHARGE DIAGNOSES: 1. Hypoxia. 2. Pneumonia, right upper lobe infiltrate. 3. Leukocytosis. 4. Polycythemia. 5. History of pericardial effusion. 6. Status post septoplasty. 7. Postop hemorrhage after septoplasty. 8. Alcohol use. 9. Nicotine dependence. CONSULTATION: Dr. Lofton. BRIEF HISTORY: The patient is a 53-year-old gentleman with a history of chronic tobacco use, prior episode of cardiac tamponade from hemorrhagic pericardial effusion, unclear etiology, who presented for a septoplasty. He had a septal deviation repair and was noted to be hypoxic both pre and postoperatively. His oxygen levels were 80s preop and again postop. He was admitted and treated with oxygen. Of concern, he had a chest x-ray performed that showed a right upper lobe infiltrate noted on the chest x-ray, new from the prior. He was treated with Unasyn IV. He improved significantly overall. He also had some bleeding after having the septoplasty and kept oozing after the procedure, which was done on January 17. He was seen and evaluated by Dr. Lofton. At that time, he placed a Rapid Rhino rocket on the right side, which resolved the bleeding. He will follow up with Dr. Valladares in the next few days. HOSPITAL COURSE PER PROBLEM: 1. Hypoxia: This is multifactorial. He has nasal packing in place. He has an element of COPD and pneumonia. He will be discharged home on oxygen. Reviewed with him the importance of no smoking around the oxygen. 2. Pneumonia: He was treated with Unasyn. Blood culture shows no growth. His lung sounds are much improved. 3. Leukocytosis, improved. His procalcitonin level is low. 4. Polycythemia: I suspect he is chronically hypoxic. This is from COPD and tobacco use. 5. History of pericardial effusion: This occurred in 2011. No clear-cut etiology was found. 6. Status post septoplasty: He will take Augmentin for 4 more days. He received Unasyn during his hospital stay. 7. Postop hemorrhage after nasal surgery: This is secondary to a mucosal tear. No further issues. 8. Alcohol use: He says he drinks a beer nightly. He was placed on CIWA protocol, as well as thiamine. Beer with lunch and dinner was ordered. 9. Nicotine dependence. I encouraged him to cut back and never to smoke around the oxygen. DISCHARGE CONDITION: Stable. Blood pressure is 127/86, heart rate of 87, respiratory rate of 20, O2 sats on room air 88%, temperature is 36.7 Celsius. MEDICATIONS AT DISCHARGE: Please see the EMR. DISCHARGE INSTRUCTIONS: 1. He has an appointment on January 21, at [address] Valladares. 2. Follow up with Rika May (she is a nurse practitioner at [facility] ) on January 23, at 11 a.m. 3. No smoking around the oxygen. 4. Take Augmentin for 4 more days. 5. No nose blowing. Do not bend his head down below his waist. Greater than 30 minutes discharging and coordinating the patient's care. Copy requested to: Dr. Blaine Lofton /[id number]/MODL MTDD
--- NOTE | 2019-01-20 14:01 | CPEKG ---
Test Reason : OPEN Blood Pressure : / mmHG Vent. Rate : 066 BPM Atrial Rate : 066 BPM P-R Int : 141 ms QRS Dur : 085 ms QT Int : 442 ms P-R-T Axes : 050 -43 -50 degrees QTc Int : 464 ms Sinus rhythm Probable left atrial enlargement Left axis deviation Repol abnrm, prob ischemia, anterolateral lds Confirmed by Antonio Hodges ([id number]) on 01/20/2019 2:00:24 PM Referred By: Shayy Sumner Confirmed By:Antonio Hodges
--- NOTE | 2019-01-20 15:38 | GOP ---
[f rep st] OPERATIVE REPORT DATE OF OPERATION: SURGEON: Joesph Valladares MD JAVA MOBILE DEVELOPER: None. ANESTHESIA: General. PREOPERATIVE DIAGNOSIS: Obstructive nasal septal deviation, obstructive nasal valve stenosis. POSTOPERATIVE DIAGNOSIS: Obstructive nasal septal deviation, obstructive nasal valve stenosis. PROCEDURE PERFORMED: Endoscopic septoplasty with nasal valve stenosis repair with right-sided gary graft and modification of medial crura and septal tip. FINDINGS: Nasal valve stenosis as described in operative indications. Nasal septal deviation that w as obstructive. SPECIMENS: None. ESTIMATED BLOOD LOSS: Minimal. INDICATIONS: Patient was seen in outpatient clinic and found to have significant obstructive nasal s eptal deviation and nasal valve stenosis with dynamic collapse at the right internal and external florinda ves, as well as medial crural obstruction into the right nasal cavity causing nasal valve stenosis an d significant nasal obstruction. Given his history and findings, he was determined to be an appropri ate candidate for the above-stated procedures. The risks, benefits, and alternatives to the procedur es were explained at length to the patient who stated he understood and wished to go forward with the procedure. DESCRIPTION OF PROCEDURE: Patient was brought to the operating room by Anesthesiology and placed on the operating table. Once appropriate level of anesthesia was achieved, bilateral nasal cavities wer e injected at the intranasal ala, septum, columella with 1% lidocaine with 100,000 epinephrine. Afri n-soaked pledgets were then placed in bilateral nasal cavities to aid with hemostasis and decongestio n. The patient was then prepped and draped in usual fashion. The remainder of the procedure was per formed under 0 degree endoscopic visualization. Afrin-soaked pledgets were removed, a left hemitransfixion incision was created with a needle-tip Bov ie electrocautery. A subperichondrial and subperiosteal nasal septal flap was raised with a combinat ion of [place] elevator and suction [place]. Once this was elevated appropriately, a vertical incision was created at the bony cartilaginous junction with a Cierra elevator. The contralateral mucosa was elevated off the bony septum with the suction [place]. A d knife was then used to incise the deviated portions of septal cartilage. Care was taken to leave at least 1 cm of dorsal and caudal cartilagino us septal strut. The incised cartilage was then elevated off the contralateral mucosa with Cierra el evator. This was removed with a Hannah and set aside in sterile saline for cartilage grafting. O steotome was used at the anterior aspect of the maxillary crest to remove deviated portions of bone. These were then removed with a Hannah. A straight Roberson scissor was then used to create a superio r cut at the bony septum. The remaining deviated portions of septum were then removed with a Wandy hi. There was some mild bleeding within the surgical bed. Hemostasis was then achieved by packing w ith Afrin-soaked pledgets. Once the pledgets were removed, there was good hemostasis. The septal fl ap was replaced. Under endoscopic visualization through bilateral nasal cavities, the septum appeare d largely midline and straight. At this point, there was still significant deviation at the right nasal septal tip. A retrograde dis section was completed at the hemitransfixion incision in order to be able to free up the anterior asp ect of the septum. The tissue was retracted with a wide double prong skin hook and dissection was co mpleted with iris scissors. Once the tissues in the contralateral columella were palpated and visual ized, it was noted that the medial crura was rotated and extending laterally into the right nasal cav ity causing the nasal valve stenosis and obstruction. The deviated portion and medial crura were dis sected free. This was then removed. That allowed for the significant reduction of the soft tissue v olume within the right nasal cavity. The left hemitransfixion incision was then closed with two 4-0 chromic interrupted sutures. A 4-0 PD S suture was then quilted from the base of the left columella through to the base of the right colume lla, up along the deviated portion of soft tissue to the mid columella and then back to the left. It was then run down subcutaneously to the initial site of needle penetration. This was tied off and a llowed for significant reduction of the soft tissue volume within the right nasal cavity along the co lumella. The lateral crura on the right-hand side was found to be incompetent and quite floppy. Giv en that, it was decided that he was appropriate for cartilage gary graft on that side. A marking pen was used to joesph the nasal tip at the tip alar junction. Superior laterally at the pir iform aperture on the right, another joesph was placed. The distance between the markings was measured and found to be 18 mm. The harvested cartilage was then cut to 20 mm x 4 mm. The sides and edges w ere beveled appropriately. This was placed aside as the ala was everted with a wide double prong ski n hook and an intranasal incision was placed just beneath the tip marking. Iris scissors were used t o create a subperichondrial pocket that ran the superolaterally to the lateral aspect of the piriform aperture. Once this was completed, the harvested cut cartilage was then placed within the pocket wi th a [employer] [place] forceps. It was found to be in good position and firmly within the pocket. At that point, a 4-0 chromic suture was used to close the incision. Bilateral nasal cavities were inspected for bleeding and none was found. Bacitracin coated Guerrier spl ints were then placed in bilateral nasal cavities and secured in place using a single [id number]-[id number] ough 3-0 Prolene suture. The patient tolerated these procedures well and was extubated in the operat ing room prior to being transferred in good condition to postanesthesia care unit thank you. COMPLICATIONS: None. /[id number]/MODL
--- NOTE | 2019-01-20 18:00 | ASMTDCNOTE ---
Case Management Discharge Discharge Order Complete? Answers: Yes Patient to Obtain Answers: Other Notes: bedside delivery Medications Transportation Arranged Answers: [facility] Transport will Pick (Date 01/20/2019 12:45 PM & Time) Faxed Final Orders Answers: Yes Agency/Facility Transfer Answers: Yes Report Printed & Faxed to Receiving Agency [facility] Notified Answers: Yes Notes: CM called pt's Optical Glass Etcher at [facility] Discharge Comments Notes: Pt to discharge home to [facility] with [facility] RN and new O2. CM made follow up appointment for pt's with [facility] and with ENT Dr. Valladares, and notified [facility] of discharge. No further CM needs noted at this time. Date Signed: 01/20/2019 03:48 PM Electronically Signed By:Demi Mendez
--- NOTE | 2019-01-20 18:07 | ASDISCHSUM ---
Discharge Information Plan Status:Home with Home Health Medically Cleared to Leave:01/20/2019 Discharge Date:01/20/2019 01:09 PM CM D/C Disposition:Home Health Service ADT D/C Disposition:Home Health Service Projected Discharge Date:01/20/2019 11:00 AM Transportation at D/C:Friend Discharge Delay Reason: Follow-Up Date:01/20/2019 11:00 AM Discharge Slot: Final Diagnosis:hypoxia, epistaxis Placement Information Referral Type:*Home Health Care Services Referral ID:[id number] Provider Name:[facility] Address 1:[address] [address] Address 2: City:[place] Selection Factors: State:[place] Patient Contact Information Contact Name:ALYSON Relationship:Other Address: City:[place] Alternate Phone: State/Zip Code:[place] Email: Financial Information Financial Class:Medicaid Primary Plan Desc:MEDICAID [facility] [place] Primary Plan Number:[id number] Secondary Plan Desc: Secondary Plan Number: Assessment Information LACE LACE Length of stay for Answers: 2 days current admission Acuity / Level of Answers: Yes Care: Did the patient have an inpatient admission? Comorbidities - select Answers: Cerebrovascular disease all that apply (CVA, TIA, aneurysms, vasc ular dementia) Other Notes: GERD, migraines, TBI, O SA # of Emergency department Answers: 0 visits in the last 6 months Social determinants Answers: Mental health diagnosis (anxiety, depression, pers onality disorders, etc.) Score: 10 Date Signed: 01/19/2019 12:23 PM Electronically Signed By:Preeti Fitch RN [facility] CM Progress Note CM Note CM Note Notes: Pt is s/p septoplasty and kept overnight for hypoxia. He is also on CIWA for etoh use. He has been intermittently homeless but currently living in a [facility]. Anticipate he will d/c home independent when medically cleared. CM will continue to follow for any change in d/c needs. D/C plan: anticipate home independent Date Signed: 01/18/2019 03:15 PM Electronically Signed By:BO Valentine [facility] Progress Note CM Note CM Note Notes: D/w [employer] and met with pt, will go home with O2 and home health RN. CM spoke with Hannah at [facility] and they can accept. Pt still oozing blood from nose, will dc tomorrow when medically stable. DC Plan: Homecare/ Family (RN) Date Signed: 01/19/2019 02:18 PM Electronically Signed By:Preeti Fitch RN Case Management Discharge Plan Note Case Management Discharge Discharge Order Complete? Answers: Yes Patient to Obtain Answers: Other Notes: bedside delivery Medications Transportation Arranged Answers: Family[facility] Transport will Pick (Date 01/20/2019 12:45 PM & Time) Faxed Final Orders Answers: Yes Agency/Facility Transfer Answers: Yes Report Printed & Faxed to Receiving Agency Family Notified Answers: Yes Notes: CM called pt's [facility] at [facility] Discharge Comments Notes: Pt to discharge home to [facility] with [facility] RN and new O2. CM made follow up appointment for pt's with [facility] and with ENT Dr. Valladares, and notified [facility] of discharge. No further CM needs noted at this time. Date Signed: 01/20/2019 03:48 PM Electronically Signed By:Demi Mendez Intervention Information
[2019-01-21] MEDS ORDERED: THIAMINE HCL 100 MG TAB PO SCH (09:00)
== END 2019-01-20 13:09 | disposition home health service (06) | DRG 794 ==
LOC: FSGY 11:19 → F3E 15:44 → OBSVTOIN 01-18 15:47
PROVIDERS: ADMIT Internal Medicine; ATTEND Internal Medicine
PROC: 09Q Ear, Nose, Sinus, Repair (ICD-10-PCS; 2019-01-17)
PROC: 09SM4ZZ Reposition Nasal Septum, Percutaneous Endoscopic Approach (ICD-10-PCS; 2019-01-17)
PROC: 09U Ear, Nose, Sinus, Supplement (ICD-10-PCS; 2019-01-17)
PROC: 2Y41X5Z Packing of Nasal Region using Packing Material (ICD-10-PCS; principal; 2019-01-17 12:30)
DX: J95.830 Postprocedural hemorrhage of a respiratory system organ or structure following a respiratory system procedure (principal); J95.89 Other postprocedural complications and disorders of respiratory system, not elsewhere classified; J18.9 Pneumonia, unspecified organism; R09.02 Hypoxemia; J34.2 Deviated nasal septum; D75.1 Secondary polycythemia; J34.89 Other specified disorders of nose and nasal sinuses; D72.829 Elevated white blood cell count, unspecified; F17.210 Nicotine dependence, cigarettes, uncomplicated; Z95.5 Presence of coronary angioplasty implant and graft; Z87.820 Personal history of traumatic brain injury
CPT/HCPCS: G0378; J0295; J2250; J2704; J3010; J3411; J7613